=== PATIENT | male | born 1985 | race Caucasian/White ===

== ENCOUNTER 2016-06-30 17:46 | Emergency (ER) | payer OTHER ==
[2016-06-30 18:13] VITALS: BP 134/76; PULSE 91; RESP 18; TEMP 98.3
[2016-06-30] MEDS ORDERED: cefTRIAXone 250 MG VIAL IM STA (18:28)
[2016-06-30] MEDS ORDERED: AZITHROMYCIN 500 MG TAB PO STA (18:28)
--- NOTE | 2016-06-30 18:30 | ED ---
General Adult HPI - General Chief complaint: Urogenital Stated complaint: UTI Time Seen by Provider: 06/30/16 18:20 Source: patient, RN notes reviewed Mode of arrival: ambulatory Limitations: no limitations - History of Present Illness Initial comments: 31-year-old male presents emergency room chief complaint of burning with urination. Patient states he's had this for the past day or so. Patient does not know if he has an STD or he has a UTI. Patient states that he has no drainage or discharge patient denies any fever chills. Patient denies any history of this in the past. Patient states he continues to have this discomfort he continues to have some itching so he thought that he should be evaluated.Patient denies any recent fever, chills, shortness of breath, chest pain, back pain, abdominal pain, nausea vomiting, numbness or tingling, hematuria, constipation or diarrhea, headaches or visual changes, or any other current symptoms. - Related Data Previous Rx's Medication Instructions Recorded Clindamycin HCl [Cleocin] 300 mg PO Q6H #40 cap 04/30/15 Naproxen [Naprosyn] 500 mg PO Q12HR #24 tab 04/30/15 Allergies Allergy/AdvReac Type Severity Reaction Status Date / Time codeine Allergy Rash/Hives Verified 06/30/16 18:13 Review of Systems ROS Statement: Those systems with pertinent positive or pertinent negative responses have been documented in the HPI. ROS Other: All systems not noted in ROS Statement are negative. Past Medical History Past Medical History: Asthma History of Any Multi-Drug Resistant Organisms: None Reported Additional Past Surgical History / Comment(s): jaw surg Past Psychological History: ADD/ADHD, Anxiety Smoking Status: Current every day smoker Past Alcohol Use History: None Reported Past Drug Use History: Heroin General Exam Limitations: no limitations General appearance: alert, in no apparent distress ENT exam: Present: normal exam, mucous membranes moist Neck exam: Present: normal inspection. Absent: tenderness, meningismus, lymphadenopathy Respiratory exam: Present: normal lung sounds bilaterally. Absent: respiratory distress, wheezes, rales, rhonchi, stridor Cardiovascular Exam: Present: regular rate, normal rhythm, normal heart sounds. Absent: systolic murmur, diastolic murmur, rubs, gallop, clicks GI/Abdominal exam: Present: soft, normal bowel sounds. Absent: distended, tenderness, guarding, rebound, rigid Neurological exam: Present: alert, oriented X3 Psychiatric exam: Present: normal affect, normal mood Skin exam: Present: warm, dry, intact, normal color. Absent: rash Course Vital Signs 06/30/16 18:10 Temperature 98.3 F Pulse Rate 91 Respiratory 18 Rate Blood Pressure 134/76 O2 Sat by Pulse 98 Oximetry Medical Decision Making - Medical Decision Making 31-year-old male presents with dysuria. This time we did prophylactically patient for STDs. Patient's urinalysis was also sent for culture. We did discuss that he does come back positive he needs follow-up. We discussed safe sex practices. We did discuss that he felt with his doctor for receiving is negative. We discussed return parameters and all his questions. He stated he understood and he does agree with the plan. He will be discharged home. - Lab Data Lab Results 06/30/16 Range/Units 18:15 Urine Color Yellow Urine Appearance Clear (Clear) Urine pH 6.5 (5.0-8.0) Ur Specific [place] 1.023 (1.001-1.035) Urine Protein Negative (Negative) Urine Glucose (UA) Negative (Negative) Urine Ketones Negative (Negative) Urine Blood Negative (Negative) Urine Nitrite Negative (Negative) Urine Bilirubin Negative (Negative) Urine Urobilinogen 2.0 (<2.0) mg/dL Ur Leukocyte Esterase Small H (Negative) Urine RBC <1 (0-5) /hpf Urine WBC 18 H (0-5) /hpf Disposition Clinical Impression: Dysuria Disposition: HOME SELF-CARE Condition: Stable Instructions: Urinary Tract Infection in Men (ED) Additional Instructions: Please use medication as discussed. Please follow up with family doctor if symptoms have not improved over the next two days. Please return to the emergency room if your symptoms increase or worsen or for any other concerns. Referrals: Nathaniel Palomo MD [Primary Care Provider] - 1-2 days Time of Disposition: 18:58
[2016-06-30 18:57] LABS: Appearance,Urine Clear (Clear); Bilirubin,Urine Negative (Negative); Glucose,Urine (UA) Negative (Negative); Ketones,Urine Negative (Negative); Leukocyte Esterase,Urine Small (Negative); Nitrite,Urine Negative (Negative); PH, Urine 6.5 (5.0-8.0); Particle Count 477; Protein,Urine Negative (Negative); RBC,Urine <1 /hpf (0-5); Specific Gravity,Urine 1.023 (1.001-1.035); UA Billing (MACRO vs. MICRO) MICRO; WBC,Urine 18 /hpf (0-5)
== END 2016-06-30 19:03 | disposition home or self-care (01) ==
LOC: EC 17:46
DX: R30.0 Dysuria (principal); F17.200 Nicotine dependence, unspecified, uncomplicated; Z88.5 Allergy status to narcotic agent
CPT/HCPCS: 99283; 96372; 81001; 87491; 87591; 87086; J0696

== ENCOUNTER → 2018-03-10 | Outpatient (CLI) | payer OTHER ==
--- NOTE | 2018-03-11 02:06 | MR ---
EXAMINATION TYPE: MR shoulder LT wo con DATE OF EXAM: 03/10/2018 COMPARISON: Shoulder pain HISTORY: Neck/lt shoulder pain, weakness x 2 mos TECHNIQUE: Multiplanar, multisequence imaging of the left shoulder is performed without contrast. FINDINGS: The glenoid tod appear intact. Subscapularis tendon is intact. The biceps tendon is intact. There i s hypertrophic spurring at the AC joint. The supraspinatus tendon shows no focal defect. There is no retraction. I see no bony destructive process. Joint spaces are fairly normal. IMPRESSION: Negative MR scan of the left shoulder. No evidence of rotator cuff tear.
== END | disposition home or self-care (01) ==
LOC: RADMRIMAIN 19:42
PROVIDERS: ATTEND Orthopaedic Surgery
DX: M25.512 Pain in left shoulder (principal); M62.81 Muscle weakness (generalized)

== ENCOUNTER → 2018-08-04 | Outpatient (CLI) | payer OTHER ==
--- NOTE | 2018-08-04 08:08 | US ---
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 EXAM MEASUREMENTS: Liver Length: 13.2 cm Gallbladder Wall: 0.1 cm CBD: 5.5mm Right Kidney: 10.3 x 5.7 x 4.7 cm Pancreas: Limited by bowel gas Liver: no masses are seen Gallbladder: wnl Evidence for sonographic Chakraborty's sign: no CBD: wnl Right Kidney: No hydronephrosis or masses seen IMPRESSION: 1. No acute process. Hepatic tissue is homogeneous.
== END | disposition home or self-care (01) ==
LOC: RADUSWWP 07:27
PROVIDERS: ATTEND Internal Medicine Gastroenterology
DX: B18.2 Chronic viral hepatitis C (principal)
CPT/HCPCS: 76705

== ENCOUNTER → 2018-08-31 | Outpatient (CLI) | payer OTHER ==
[2018-08-31 17:32] LABS: Basophils # (A) 0.1 k/uL (0-0.2); Basophils % (A) 1 %; Eosinophils # (A) 0.6 k/uL (0-0.7); Eosinophils % (A) 6 %; HCT 50.8 % (39.0-53.0); HGB 17.2 gm/dL (13.0-17.5); Lymphocytes # (A) 2.2 k/uL (1.0-4.8); Lymphocytes % (A) 22 %; MCH 30.1 pg (25.0-35.0); MCHC 33.9 g/dL (31.0-37.0); MCV 89.1 fL (80.0-100.0); Monocytes # (A) 0.6 k/uL (0-1.0); Monocytes % (A) 6 %; Neutrophils # (A) 6.5 k/uL (1.3-7.7); Neutrophils % (A) 64 %; Platelet Count 309 k/uL (150-450); RBC 5.71 m/uL (4.30-5.90); RDW 13.4 % (11.5-15.5); WBC 10.2 k/uL (3.8-10.6)
[2018-08-31 17:39] LABS: Prothrombin Time 10.6 sec (9.0-12.0)
[2018-09-01 04:25] LABS: Hepatitis A Antibody IgM Non-Reactive (Non-Reactive); Hepatitis B Core IgM Non-Reactive (Non-Reactive)
[2018-09-01 06:08] LABS: ALT 81 U/L (10-49); AST 42 U/L (14-35); Albumin/Globulin Ratio 1.83 (1.60-3.17); Alkaline Phosphatase 59 U/L (41-126); Bilirubin, Conjugated <0.20 mg/dL (0.20-0.40); Globulin 2.4 g/dL (1.6-3.3); Total Bilirubin 0.3 mg/dL (0.3-1.2); Total Protein 6.8 g/dL (6.2-8.2)
== END | disposition home or self-care (01) ==
LOC: LABWHC1 17:05
PROVIDERS: ATTEND Physician Assistant
DX: B18.2 Chronic viral hepatitis C (principal)
CPT/HCPCS: 36415; 80074; 80076; 85025; 85610; 87522

== ENCOUNTER → 2019-04-19 | Outpatient (CLI) | payer OTHER ==
[2019-04-19 11:11] LABS: Basophils # (A) 0.1 k/uL (0-0.2); Basophils % (A) 0 %; Eosinophils # (A) 0.4 k/uL (0-0.7); Eosinophils % (A) 3 %; HCT 53.8 % (39.0-53.0); HGB 17.8 gm/dL (13.0-17.5); Lymphocytes # (A) 1.1 k/uL (1.0-4.8); Lymphocytes % (A) 8 %; MCV 90.8 fL (80.0-100.0); Mean Platelet Volume 6.7; Monocytes # (A) 0.7 k/uL (0-1.0); Monocytes % (A) 5 %; Neutrophils # (A) 12.6 k/uL (1.3-7.7); Neutrophils % (A) 84 %; Platelet Count 285 k/uL (150-450); RBC 5.93 m/uL (4.30-5.90); RDW 13.2 % (11.5-15.5); WBC 15.1 k/uL (3.8-10.6)
[2019-04-19 16:40] LABS: Albumin 4.3 g/dL (3.80-4.90); Albumin/Globulin Ratio 2.26 (1.60-3.17); Bilirubin, Conjugated 0.2 mg/dL (0.20-0.40); Bilirubin,Unconjugated 0.3 mg/dL; Globulin 1.9 g/dL (1.6-3.3); Total Bilirubin 0.5 mg/dL (0.3-1.2); Total Protein 6.2 g/dL (6.2-8.2)
== END | disposition home or self-care (01) ==
LOC: LABWHC1 10:38
PROVIDERS: ATTEND Physician Assistant
DX: B18.2 Chronic viral hepatitis C (principal)
CPT/HCPCS: 36415; 80076; 85025; 87522

== ENCOUNTER → 2019-04-19 | Outpatient (CLI) | payer OTHER ==
--- NOTE | 2019-04-19 12:15 | XR ---
Right wrist HISTORY: Right wrist pain For views of the right wrist Bone mineralization, joint spaces and alignment are maintained. Question soft tissue swelling. No fra cture or dislocation. IMPRESSION: Correlate for soft tissue swelling. Wrist MRI may be of benefit.
== END | disposition home or self-care (01) ==
LOC: RADXRMAIN 10:50
PROVIDERS: ATTEND Family Medicine
DX: M25.531 Pain in right wrist (principal)

== ENCOUNTER → 2019-10-31 | Outpatient (CLI) | payer OTHER ==
--- NOTE | 2019-10-31 21:01 | CONS ---
CONSULTATION REASON FOR CONSULTATION: Excessive loud snoring. 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 He has been also noted by his to stop breathing. He goes to bed around 10:30 and wakes up at 4:30 a.m. in the morning. On weekends he goes to bed at 10:30 and wakes up at 7:30 a.m. in the morning. He wakes up tired during the weekdays. His weight has been stable, around 180 pounds. He drinks 1-2 cups of coffee during the day to keep himself stimulated. He takes naps if he is given the opportunity to do so. No sleep paralysis. No hallucinations. No cataplexy. Otherwise healthy individual. PAST MEDICAL HISTORY: Heartburn. SURGICAL HISTORY: Back surgery involving the lower spine with plates and screws in 2011. DRUG ALLERGIES: CODEINE. OUTPATIENT MEDICATION LIST: Outpatient medication list includes acyclovir and omeprazole. SOCIAL HISTORY: Nonsmoker. No history of alcoholism. No history of IV drugs. FAMILY HISTORY: Negative for sleep apnea. REVIEW OF SYSTEMS: Twelve-point review of system was done. Positive findings are mentioned above in the history of present illness. PHYSICAL EXAMINATION: BP is 150/76, pulse 63, respirations 18, temperature 97.7, saturation 95% on room air. BMI 29.9. Weight is 184. [place] score is 13. Neck size 17 inches. GENERAL APPEARANCE: Calm, comfortable. HEAD: Atraumatic, normocephalic. NECK: Supple. Mallampati class II to III. No goiter or neck masses. Slight overbite. LUNGS: Clear to auscultation. HEART: Heart sounds are regular rate and rhythm. Normal S1, S2. No S3, S4. No murmurs. ABDOMEN: Soft, nontender. No organomegaly. EXTREMITIES: No edema. No cyanosis or clubbing. IMPRESSION: 1. Hypersomnia. [place] score of 13. 2. Loud snoring. 3. Witnessed apneas. PLAN: Will proceed with a screening polysomnogram to evaluate this patient for sleep apnea and treat accordingly. MMODL / IJN: [id number] /
== END | disposition home or self-care (01) ==
LOC: SLEEP 16:24
PROVIDERS: ATTEND Internal Medicine Critical Care Medicine
DX: G47.10 Hypersomnia, unspecified (principal)
CPT/HCPCS: 99211

== ENCOUNTER → 2020-02-27 | Outpatient (CLI) | payer OTHER ==
[2020-02-27 15:44] LABS: HCT 54.3 % (39.0-53.0); HGB 18.8 gm/dL (13.0-17.5); MCH 31.4 pg (25.0-35.0); MCHC 34.6 g/dL (31.0-37.0); MCV 90.9 fL (80.0-100.0); Mean Platelet Volume 6.5; Platelet Count 338 k/uL (150-450); RBC 5.97 m/uL (4.30-5.90); RDW 12.8 % (11.5-15.5); WBC 9.7 k/uL (3.8-10.6)
[2020-02-28 02:10] LABS: Albumin 4.6 g/dL (3.80-4.90); Albumin/Globulin Ratio 1.92 (1.60-3.17); Bilirubin, Conjugated 0.2 mg/dL (0.20-0.40); Bilirubin,Unconjugated 0.2 mg/dL; Globulin 2.4 g/dL (1.6-3.3); Total Bilirubin 0.4 mg/dL (0.2-1.2)
== END | disposition home or self-care (01) ==
LOC: LABWHC1 14:32
PROVIDERS: ATTEND Physician Assistant
DX: B18.2 Chronic viral hepatitis C (principal)
CPT/HCPCS: 36415; 80076; 85027; 87522

== ENCOUNTER 2020-03-15 06:56 | Day surgery (SDC) | payer OTHER ==
[2020-03-14 13:05] VITALS: BMI 28.0
[2020-03-15] MEDS ORDERED: LIDOCAINE 1% (10MG/ML) FOR IV START INTRADERMA ONE (07:22)
[2020-03-15] MEDS ORDERED: LACTATED RINGERS 1,000 ML IV ONE (07:22)
[2020-03-15] MEDS ORDERED: PROPOFOL 10 MG/ML 20 ML VIAL IV ONE (07:29)
[2020-03-15] MEDS ORDERED: LIDOCAINE 1% INJ 10MG/ML (20 ML MDV) ONE (07:29)
[2020-03-15 07:30] VITALS: TEMP 97.2
--- NOTE | 2020-03-15 07:41 | P.PCN ---
Date of Procedure: 03/15/20 Procedure(s) Performed: BRIEF HISTORY: Patient is a 34-year-old, pleasant, white male scheduled for an upper endoscopy as a part of evaluation of epigastric pain for the last few years but has been progressively getting worse for the last 2 months. He was recently started on Prilosec 20 mg daily with some relief.. PROCEDURE PERFORMED: Esophagogastroduodenoscopy with biopsy. PREOPERATIVE DIAGNOSIS: Chronic epigastric pain. IV sedation per anesthesia. PROCEDURE: After informed consent was obtained, the patient was brought into the endoscopy unit. IV sedation was administered by Anesthesia under continuous monitoring. Initially the Olympus GIF-140 video endoscope was inserted into the mouth. Esophagus intubated without any difficulty. It was gradually advanced into the stomach and duodenum and carefully examined. The second part of the duodenum appeared normal. In the duodenal bulb along the duodenal sweep there was a 2 cm clean-based ulcer with no active bleeding identified. The scope at this time was withdrawn to the stomach, adequately insufflated with air, and upon careful examination, mucosa of the antrum, and mild gastritis and biopsies were done from this area. The body, cardia and the fundus appeared normal. The scope was then withdrawn into the esophagus. The GE junction was located at 41 cm from the incisors. There were longitudinal ridges and furrows and thickened esophageal mucosal folds associated with mucosal rings involving the mid and distal esophagus suspicious for eosinophilic esophagitis and multiple biopsies were done from this area. The proximal esophagus appeared normal and the patient tolerated the procedure well. IMPRESSION: 1. 2 cm clean-based duodenal bulbar ulcer along the duodenal sweep with no active bleeding. 2. Mild antral gastritis. 3. Thickened esophageal folds with longitudinal ridges and superficial mucosal rings involving the mid and distal esophagus suspicious for eosinophilic esophagitis, status post multiple biopsies RECOMMENDATIONS: The findings of this examination were discussed with the patient as well as his family. He was advised to continue with Prilosec 20 mg daily. In the meantime he will avoid NSAIDs. He'll be seen in office in 3-4 weeks..
[2020-03-15 07:47] VITALS: PULSE 90
[2020-03-15 08:10] VITALS: BP 122/78; RESP 20
== END 2020-03-15 08:27 | disposition home or self-care (01) ==
LOC: ORWHC2ENDO 06:56
PROVIDERS: ATTEND Internal Medicine Gastroenterology
DX: K26.9 Duodenal ulcer, unspecified as acute or chronic, without hemorrhage or perforation (principal); K29.70 Gastritis, unspecified, without bleeding; K31.9 Disease of stomach and duodenum, unspecified; K22.8 Other specified diseases of esophagus; D72.10 Eosinophilia, unspecified; G47.33 Obstructive sleep apnea (adult) (pediatric); K21.9 Gastro-esophageal reflux disease without esophagitis; G89.29 Other chronic pain; Z79.899 Other long term (current) drug therapy; Z88.5 Allergy status to narcotic agent; Z87.09 Personal history of other diseases of the respiratory system; Z87.891 Personal history of nicotine dependence; Z79.1 Long term (current) use of non-steroidal anti-inflammatories (NSAID)
CPT/HCPCS: 88305; 43239; J2001; J2704

== ENCOUNTER → 2021-01-06 | Outpatient (CLI) | payer OTHER ==
[2021-01-06 20:07] LABS: Basophils # (A) 0.07 X 10*3/uL (0.00-0.10); Basophils % (A) 0.9 %; Eosinophils # (A) 0.38 X 10*3/uL (0.04-0.35); HCT 55.3 % (39.6-50.0); HGB 18.4 g/dL (13.0-17.0); Lymphocytes # (A) 1.88 X 10*3/uL (0.90-5.00); Lymphocytes % (A) 24.6 %; MCH 30.4 pg (27.0-32.0); MCHC 33.3 g/dL (32.0-37.0); MCV 91.3 fL (80.0-97.0); Mean Platelet Volume 8.9 fL (9.5-12.2); Monocytes # (A) 0.55 X 10*3/uL (0.20-1.00); Monocytes % (A) 7.2 %; Neutrophils % (A) 61.6 %; Platelet Count 320 X 10*3/uL (140-440); RBC 6.06 X 10*6/uL (4.40-5.60); RDW 12.5 % (11.5-14.5); WBC 7.63 X 10*3/uL (4.50-10.00)
[2021-01-06 22:21] LABS: ALT 25 U/L (10-49); AST 20 U/L (14-35); African American GFR (CKD) 80.8 (60.0-200.0); Albumin 4.8 g/dL (3.8-4.9); Albumin/Globulin Ratio 1.78 (1.60-3.17); Alkaline Phosphatase 73 U/L (41-126); BUN/Creat Ratio 10.77 Ratio (12.00-20.00); Calcium 10.3 mg/dL (8.7-10.3); Chloride 100 mmol/L (96-109); Chol/HDL Ratio 4.43 Ratio; Globulin 2.7 g/dL (1.6-3.3); Glucose 81 mg/dL (70-110); LDL Cholesterol,Calculated 109.4 mg/dL (0.0-131.0); Non-African American GFR(CKD) 69.7 (60.0-200.0); Potassium 4.9 mmol/L (3.5-5.5); Sodium 140 mmol/L (135-145); Total Protein 7.5 g/dL (6.2-8.2); VLDL Calculation 17.64 mg/dL (5.00-40.00)
== END | disposition home or self-care (01) ==
LOC: LABWHC1 13:36
PROVIDERS: ATTEND Nurse Practitioner Family
DX: Z00.00 Encounter for general adult medical examination without abnormal findings (principal); R53.83 Other fatigue; R51.9 Headache, unspecified
CPT/HCPCS: 36415; 80053; 80061; 84443; 85025

== ENCOUNTER → 2021-02-10 | Outpatient (CLI) | payer BC, OTHER ==
[~2021-02-10] MED LIST: SODIUM CHLORIDE 0.9% 500 ML 500 ML in EMPTY BAG 1 BAG IV PRN
[2021-02-10 08:28] LABS: HCT 53.3 % (39.0-53.0); HGB 18.7 gm/dL (13.0-17.5); MCH 31.7 pg (25.0-35.0); MCHC 35.1 g/dL (31.0-37.0); MCV 90.3 fL (80.0-100.0); Mean Platelet Volume 6.7; Platelet Count 266 k/uL (150-450); RBC 5.91 m/uL (4.30-5.90); RDW 12.6 % (11.5-15.5); WBC 8.3 k/uL (3.8-10.6)
[2021-02-10 08:50] VITALS: RESP 16
[2021-02-10 08:54] VITALS: BP 149/88; PULSE 92
== END ==
LOC: PROCWHC3 08:02
PROVIDERS: ATTEND Nurse Practitioner Family
DX: D45 Polycythemia vera (principal); F17.200 Nicotine dependence, unspecified, uncomplicated; Z88.5 Allergy status to narcotic agent
CPT/HCPCS: 36415; 85027; 99195

== ENCOUNTER → 2021-09-23 | Outpatient (CLI) | payer BC ==
--- NOTE | 2021-09-23 15:47 | P.PN ---
Subjective Progress Note Date: 09/23/21 On 09/23/2021, seeing the patient for a follow-up regarding his obstructive sleep apnea. His last evaluation was with me back in 12/18/2019. The patient is known to have obstructive sleep apnea. The patient has mild disease with an AHI of 13.5. Over the past 2 years, the patient has gained weight in the order of 6 months and his current body weight is up to 190. 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 At times is missing and not using his CPAP machine. He notices that he has become more symptomatic while off treatment. The patient has no new complaints otherwise for now. He wants to become more compliant and he seems to be committed to CPAP therapy. Based on the compliance data that was collected over the past 30 days, the patient has used the machine 6 out of 30 days and the patient has achieved more than 4 hours only 1 out of 30 days. His neck is order 31 L per minute and his AHI down to 1.4 while on treatment. He has a medium-sized Simplus fullface mask. No major hypersomnia and sleepiness during the day. Does not. He was driving his car or doing other day-to-day activities. Objective - Exam BP is 132/84 with a pulse of 82 and a respiration of 16 with a temperature 97.7. Oxygen saturations 97% on room air. [place] score is at 14. Height is 5 feet and 7 inches and weight is 190. His body mass index is 29.7. The patient appeared well nourished and normally developed. Vital signs as do cumented. Head exam is unremarkable. No scleral icterus or corneal arcus noted. Neck is without jugular venous distension, thyromegaly, or carotid bruits. Carotid upstrokes are brisk bilaterally. Lungs are clear to auscultation and percussion. Cardiac exam reveals the PMI to be normally sized and situated. Rhythm is regular. First and second heart sounds normal. No murmurs, rubs or gallops. Abdominal exam reveals normal bowel sounds, no masses, no organomegaly and no aortic enlargement. Extremities are nonedematous and both femoral and pedal pulses are normal.Examination of the skin revealed no evidence of significant rashes, suspicious appearing nevi or other concerning lesions.Neurologically, the patient is awake and alert and the patient does not have any focal neurological deficit. Cranial nerves are essentially intact. Assessment and Plan Plan: Obstructive sleep apnea, mild, AHI of 13.5, suboptimal compliancy Chronic hypersomnia, active Plan The patient was counseled again on the use of CPAP machine. Compliancy check was done. The data was suboptimal. Another mask fit was done and the patient was given a small sized Simplus fullface mask. I also switch this patient from a fixed CPAP pressure to an APAP mode and he will be set at a minimum pressure of 4 and adnexa pressure of 12 and the patient will go back on using his machine and the patient will see back in a follow-up in for another compliancy evaluation within one year. Encourage weight loss. Maintain good sleep hygiene measures. We'll continue to follow.
== END ==
LOC: SLEEP 15:01
PROVIDERS: ATTEND Internal Medicine Critical Care Medicine
DX: G47.33 Obstructive sleep apnea (adult) (pediatric) (principal); Z99.89 Dependence on other enabling machines and devices; Z88.5 Allergy status to narcotic agent; F17.200 Nicotine dependence, unspecified, uncomplicated

== ENCOUNTER → 2021-12-30 | Outpatient (CLI) | payer BC ==
--- NOTE | 2021-12-30 15:25 | P.PN ---
Progress Note - Text Progress Note Date: 12/30/21 This is a 36-year-old male patient with known history of obstructive sleep apnea was coming in for an annual check. The patient was diagnosed having was a back in the September 2021. He had mild disease with an AHI of 13. He was subsequently titrated to a CPAP pressure of 12 cm of water. He was a struggling in terms of using his CPAP. He felt that the pressure was low. He did make his own adjustments. I told that his current APAP machine currently is functional. He has set at a minimum pressure of 5 and a maximum pressure of 16 and this is depression that he picked arbitrarily. He was unable to tolerate the high pressure sensation. He was roughly averaging around 2 hours and 25 minutes of CPAP use per night. He is usages of the machine for more than 4 hours is 13%. Nevertheless, his overall days of usage is in order of 87%. The patient is seeking further advice to make any adjustments on his machine and is hoping to go back on his treatment. 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 The patient has no other new complaints otherwise. His weight has remained stable. He is using his symptoms fullface mask and I thought it was reasonable also to switch his mask. No other cardiovascular complications. No hypertension. No coronary artery disease. No chronic arrhythmias. No angina. No palpitations. No heartburn. His sleep schedule is essentially regular for now. BP is 150/91 with a pulse of 95 and a respiration of 16 and a temperature of 97.8. Oxygen saturations 97% on room air oxygen. The patient appeared well nourished and normally developed. Vital signs as documented. Head exam is unremarkable. No scleral icterus or corneal arcus noted. Neck is without jugular venous distension, thyromegaly, or carotid bruits. Carotid upstrokes are brisk bilaterally. Lungs are clear to auscultation and percussion. Cardiac exam reveals the PMI to be normally sized and situated. Rhythm is regular. First and second heart sounds normal. No murmurs, rubs or gallops. Abdominal exam reveals normal bowel sounds, no masses, no organomegaly and no aortic enlargement. Extremities are nonedematous and both femoral and pedal pulses are normal.Examination of the skin revealed no evidence of significant rashes, suspicious appearing nevi or other concerning lesions.Neurologically, the patient is awake and alert and the patient does not have any focal neurological deficit. Cranial nerves are essentially intact. Assessment Symptomatic obstructive sleep apnea, mild in severity with an AHI of 13.5. Still struggling to achieve adequate compliancy. Chronic hypersomnia Plan I switched this patient and APAP mode pressure minimum of 7 and maximum of 12. I had a starting pressure of the patient was having a low pressure sensation and feeling of suffocation at the start of the treatment. I switched this patient and Airfit F20 20 medium size full facemask and the mask fit seemed to be much better and improved I asked him to restart using the CPAP for longer hours I am going to follow this patient in one year's time and assess his taken response and compliancy. The patient himself is very much committed to ongoing CPAP therapy as the patient is seeing significant improvement while on treatment. We'll continue to follow.
== END ==
LOC: SLEEP 14:51
PROVIDERS: ATTEND Internal Medicine Critical Care Medicine
DX: G47.33 Obstructive sleep apnea (adult) (pediatric) (principal); Z88.5 Allergy status to narcotic agent; F17.200 Nicotine dependence, unspecified, uncomplicated

== ENCOUNTER → 2022-02-20 | Outpatient (CLI) | payer BC ==
[2022-02-20 19:17] LABS: Basophils # (A) 0.11 X 10*3/uL (0.00-0.10); Basophils % (A) 0.7 %; Eosinophils # (A) 0.58 X 10*3/uL (0.04-0.35); Eosinophils % (A) 3.7 %; HCT 54.6 % (39.6-50.0); HGB 18.1 g/dL (13.0-17.0); Immature Grans, Automated 0.6 %; Lymphocytes # (A) 2.21 X 10*3/uL (0.90-5.00); Lymphocytes % (A) 14.1 %; MCH 29.1 pg (27.0-32.0); MCHC 33.2 g/dL (32.0-37.0); MCV 87.6 fL (80.0-97.0); Mean Platelet Volume 8.6 fL (9.5-12.2); Monocytes # (A) 0.97 X 10*3/uL (0.20-1.00); Monocytes % (A) 6.2 %; NRBC Per 100 WBC 0 /100 WBCS (0.0-0.0); Neutrophils # (A) 11.75 X 10*3/uL (1.80-7.70); Neutrophils % (A) 74.7 %; Platelet Count 462 X 10*3/uL (140-440); RBC 6.23 X 10*6/uL (4.40-5.60); RDW 13.2 % (11.5-14.5); WBC 15.71 X 10*3/uL (4.50-10.00)
== END | disposition home or self-care (01) ==
LOC: LABWHC1 11:10
PROVIDERS: ATTEND Family Medicine
DX: D75.1 Secondary polycythemia (principal)
CPT/HCPCS: 36415; 85025

== ENCOUNTER → 2022-03-23 | Outpatient (CLI) | payer BC ==
[2022-03-23 10:51] VITALS: RESP 16; TEMP 98.5
[2022-03-23 11:09] LABS: HCT 48.7 % (39.0-53.0); MCH 28.7 pg (25.0-35.0); MCHC 32.9 g/dL (31.0-37.0); MCV 87.3 fL (80.0-100.0); Mean Platelet Volume 6.5; Platelet Count 348 k/uL (150-450); RBC 5.58 m/uL (4.30-5.90); RDW 13.4 % (11.5-15.5); WBC 6.2 k/uL (3.8-10.6)
[2022-03-23 11:39] VITALS: BP 141/75; PULSE 98
== END ==
LOC: PROCWHC3 10:42
PROVIDERS: ATTEND Family Medicine
DX: D75.1 Secondary polycythemia (principal); Z88.5 Allergy status to narcotic agent; F17.200 Nicotine dependence, unspecified, uncomplicated
CPT/HCPCS: 36415; 85027; 99195

== ENCOUNTER → 2022-09-28 | Outpatient (CLI) | payer BC ==
[2022-09-28 13:12] VITALS: RESP 16
[2022-09-28 13:23] LABS: HCT 51.6 % (39.0-53.0); HGB 17.8 gm/dL (13.0-17.5); MCHC 34.5 g/dL (31.0-37.0); MCV 89.9 fL (80.0-100.0); Mean Platelet Volume 7.1; Platelet Count 265 k/uL (150-450); RBC 5.73 m/uL (4.30-5.90); RDW 13.6 % (11.5-15.5); WBC 8.8 k/uL (3.8-10.6)
[2022-09-28 13:58] VITALS: BP 120/79; PULSE 83; TEMP 97.9
== END ==
LOC: PROCWHC3 12:49
PROVIDERS: ATTEND Family Medicine
DX: D75.1 Secondary polycythemia (principal)
CPT/HCPCS: 36415; 85027; 99195

== ENCOUNTER → 2022-11-30 | Outpatient (CLI) | payer BC ==
[2022-11-30 15:45] LABS: Basophils # (A) 0.09 X 10*3/uL (0.00-0.10); Eosinophils # (A) 0.64 X 10*3/uL (0.04-0.35); Eosinophils % (A) 7.3 %; HCT 51.7 % (39.6-50.0); HGB 17.3 d/dL (13.0-17.0); Lymphocytes # (A) 1.64 X 10*3/uL (0.90-5.00); Lymphocytes % (A) 18.8 %; MCH 29.9 pg (27.0-32.0); MCHC 33.5 d/dL (32.0-37.0); MCV 89.3 FL (80.0-97.0); Mean Platelet Volume 9.5 FL (9.5-12.2); Monocytes # (A) 0.64 X 10*3/uL (0.20-1.00); Monocytes % (A) 7.3 %; NRBC Per 100 WBC 0 X 10*3/uL (0.00-0.01); Neutrophils # (A) 5.66 X 10*3/uL (1.80-7.70); Neutrophils % (A) 65.1 %; Platelet Count 286 X 10*3/uL (140-440); RBC 5.79 X 10*6/uL (4.40-5.60); WBC 8.71 X 10*3/uL (4.50-10.00)
[2022-11-30 22:44] LABS: ALT 22 U/L (10-49); AST 17 U/L (14-35); Albumin 4.3 d/dL (3.8-4.9); Albumin/Globulin Ratio 1.87 Ratio (1.60-3.17); Alkaline Phosphatase 65 U/L (41-126); BUN/Creat Ratio 12.31 Ratio (12.00-20.00); Calcium 9.8 mg/dL (8.7-10.3); Carbon Dioxide 21.5 mmol/L (21.6-31.8); Chloride 108 mmol/L (96-109); Creatine Kinase 192 U/L (35-257); Globulin 2.3 d/dL (1.6-3.3); Glucose 106 mg/dL (70-110); Potassium 4.5 mmol/L (3.5-5.5); Sodium 141 mmol/L (135-145); Total Bilirubin 0.4 mg/dL (0.3-1.2); Total Protein 6.6 d/dL (6.2-8.2)
== END | disposition home or self-care (01) ==
LOC: LABWHC1 11:36
PROVIDERS: ATTEND Nurse Practitioner Family
DX: D75.1 Secondary polycythemia (principal); R07.9 Chest pain, unspecified; R10.13 Epigastric pain; R06.02 Shortness of breath; Z79.899 Other long term (current) drug therapy
CPT/HCPCS: 36415; 80053; 82550; 84484; 85025

== ENCOUNTER → 2022-12-10 | Outpatient (CLI) | payer BC ==
--- NOTE | 2022-12-10 09:47 | XR ---
EXAMINATION TYPE: XR chest 2V DATE OF EXAM: 12/10/2022 COMPARISON: NONE HISTORY: Chest pain TECHNIQUE: Frontal and lateral views of the chest are obtained. FINDINGS: There is no focal air space opacity. No evidence for pneumothorax. No pleural effusion. The cardiac silhouette size is within normal limits. The osseous structures are grossly intact. IMPRESSION: 1. No acute cardiopulmonary process.
--- NOTE | 2022-12-10 10:58 | US ---
EXAMINATION TYPE: US abdomen complete DATE OF EXAM: 12/10/2022 COMPARISON: CLINICAL INDICATION: Male, 37 years old with history of R10.13 EPIGASTRIC PAIN; Epigastric pain. TECHNIQUE: Multiple sonographic images of the abdomen are obtained. FINDINGS: EXAM MEASUREMENTS: Liver Length: 14.7 cm Gallbladder Wall: 0.2 cm CBD: 0.4 cm Spleen: 11.0 cm Right Kidney: 10.6 x 5.8 x 5.5 cm Left Kidney: 11.2 x 5.3 x 5.9 cm Pancreas: Head and tail obscured by overlying bowel gas Liver: wnl Gallbladder: No stones or wall thickening seen Evidence for sonographic Chakraborty's sign: neg CBD: wnl, limited due to bowel gas Spleen: wnl Right Kidney: No hydronephrosis or masses seen Left Kidney: No hydronephrosis or masses seen Upper IVC: wnl Abd Aorta: No AAA visualized at time of scan The liver is homogenous. The intrahepatic portion of the IVC and proximal abdominal aorta are within normal limits. There is no evidence of cholelithiasis. Common bile duct is unremarkable. The visu alized portions of the pancreas are homogenous. The spleen is unremarkable. Kidneys are symmetric a nd free of hydronephrosis. No renal lesions are seen. IMPRESSION: No evidence for acute process.
== END | disposition home or self-care (01) ==
LOC: RADUSWWP 08:56
PROVIDERS: ATTEND Family Medicine
DX: R10.13 Epigastric pain (principal)
CPT/HCPCS: 71046; 76700

== ENCOUNTER → 2023-01-27 | Outpatient (CLI) | payer BC ==
[2023-01-27 13:43] LABS: HCT 53.3 % (39.0-53.0); HGB 18.1 gm/dL (13.0-17.5); MCH 30.3 pg (25.0-35.0); MCV 89.1 fL (80.0-100.0); Platelet Count 292 k/uL (150-450); RBC 5.98 m/uL (4.30-5.90); WBC 8.8 k/uL (3.8-10.6)
[2023-01-27 13:53] VITALS: PULSE 71; RESP 15; TEMP 98
[2023-01-27 14:41] VITALS: BP 149/78
== END ==
LOC: PROCWHC3 12:44
PROVIDERS: ATTEND Family Medicine
DX: D75.1 Secondary polycythemia (principal); R10.13 Epigastric pain
CPT/HCPCS: 36415; 85027; 99195

== ENCOUNTER → 2024-01-17 | Outpatient (CLI) | payer BC ==
[2024-01-17 18:45] LABS: BUN/Creat Ratio 11.85 Ratio (12.00-20.00); Blood Urea Nitrogen 15.4 mg/dL (9.0-27.0); Calcium 9.6 mg/dL (8.7-10.3); Carbon Dioxide 23.8 mmol/L (21.6-31.8); Chloride 105 mmol/L (96-109); Glucose 90 mg/dL (70-110); Potassium 4.4 mmol/L (3.5-5.5); Sodium 140 mmol/L (135-145)
[2024-01-17 19:06] LABS: Appearance,Urine Clear (Clear); Bilirubin,Urine Negative (Negative); Blood,Urine Negative (Negative); Color,Urine Yellow (Yellow); Ketones,Urine Negative (Negative); Nitrite,Urine Negative (Negative); Specific Gravity,Urine 1.007 (1.001-1.030); Urobilinogen,Urine 0.2 E.U./DL
== END | disposition home or self-care (01) ==
LOC: LABWHC1 15:13
PROVIDERS: ATTEND Family Medicine
DX: I10 Essential (primary) hypertension (principal); D75.1 Secondary polycythemia; K21.9 Gastro-esophageal reflux disease without esophagitis; R94.4 Abnormal results of kidney function studies
CPT/HCPCS: 36415; 80048; 81003

== ENCOUNTER → 2024-02-07 | Outpatient (CLI) | payer BC ==
--- NOTE | 2024-02-07 16:49 | US ---
EXAMINATION TYPE: US kidneys/renal and bladder DATE OF EXAM: 02/07/2024 COMPARISON: NONE CLINICAL INDICATION: Male, 38 years old with history of R94.4 ABNORMAL RENAL FUNCTION TESTS; abn labs TECHNIQUE: Grayscale imaging of the bilateral kidneys and urinary bladder: FINDINGS: EXAM MEASUREMENTS: Right Kidney: 10.3x5.8x5.0 cm Left Kidney: 12.4x6.0x6.8 cm Right Kidney: wnl, no evidence for hydronephrosis, mass or renal calculus. Left Kidney: 0.3cm non obstructing stone Bladder: wnl Bilateral Jets seen: Yes There is no evidence for hydronephrosis at this point in time. No masses are identified. The urinar y bladder is anechoic. IMPRESSION: No evidence for acute process. Left obstructing calculus. [facility], , 02/07/2024 4:47 PM
== END | disposition home or self-care (01) ==
LOC: RADUSWWP 15:42
PROVIDERS: ATTEND Family Medicine
DX: N20.0 Calculus of kidney (principal); R94.4 Abnormal results of kidney function studies
CPT/HCPCS: 76770